=== PATIENT | female | born 1945 | race Caucasian/White ===

== ENCOUNTER → 2017-03-27 | Outpatient (CLI) | payer MEDICARE ==
--- NOTE | 2017-03-27 10:09 | REPMRS ---
Patient History The patient states she had a clinical breast exam in 03/18 Patient is postmenopausal. No known family history of cancer. Digital Woman Screen Mammo: March 27, 2017 - Exam #: [id number] Bilateral CC and MLO view(s) were taken. Technologist: Cherelle Choi, Technologist Prior study comparison: May 05, 2013, digital woman screen mammo performed at [facility]. January 08, 2012, digital woman screen mammo performed at [facility] to [facility]. FINDINGS: There are scattered fibroglandular densities. There has been no change in the appearance of the mammogram from the prior studies. There is a mild amount of residual fibroglandular tissue which is fairly symmetric. There is no interval development of dominant mass, architectural distortion, or clustered microcalcification suggestive of malignancy. Large coarse benign appearing calcifications are present. No significant changes when compared with prior studies. ASSESSMENT: BI-RADS/ACR category 1 mammogram. Negative. Recommendation Routine screening mammogram in 1 year (for women over age 40). This mammogram was interpreted with the aid of an FDA-approved computer-aided dectection system. Electronically Signed By: Lopez Tucker MD 03/27/17 [id number]
== END ==
LOC: M WHC 09:20
PROVIDERS: ATTEND Family Medicine
DX: Z12.31 Encounter for screening mammogram for malignant neoplasm of breast (principal); Z78.0 Asymptomatic menopausal state

== ENCOUNTER → 2018-06-11 | Outpatient (CLI) | payer MEDICARE | LOC: M WHC 09:42 | DX: Z12.31 Encounter for screening mammogram for malignant neoplasm of breast (principal); R92.0 Mammographic microcalcification found on diagnostic imaging of breast; M81.0 Age-related osteoporosis without current pathological fracture; Z78.0 Asymptomatic menopausal state | CPT/HCPCS: 77067 ==

== ENCOUNTER → 2019-11-18 | Outpatient (CLI) | payer MEDICARE ==
--- NOTE | 2019-11-18 13:50 | REPMRS ---
Patient History The patient states she had a clinical breast exam in October 2019. No known family history of cancer. No Hormone Replacement Therapy Digital Woman Screen Mammo: November 18, 2019 - Exam #: [id number] Bilateral CC and MLO view(s) were taken. Technologist: Amanda Fay, Technologist Prior study comparison: June 11, 2018, bilateral digital woman screen mammo performed at [facility]. March 27, 2017, digital woman screen mammo performed at [facility]. May 05, 2013, digital woman screen mammo performed at [facility]. FINDINGS: There are scattered fibroglandular densities. There is a grouping of coarse benign stable microcalcifications in the upper outer quadrant on the left unchanged from numerous prior studies. There has been no change in the appearance of the mammogram from the prior studies. There is a mild amount of scattered fibroglandular density which is fairly symmetric. There is no interval development of dominant mass, architectural distortion, or grouped microcalcification suggestive of malignancy. 3-D tomosynthesis shows no additional findings. Assessment: BI-RADS/ACR category 2 mammogram. Benign Findings. Recommendation Routine screening mammogram in 1 year. This patient's Lifetime Breast Cancer RIsk is estimated at 2.6 %. This mammogram was interpreted with the aid of an FDA-approved computer-aided dectection system. Electronically Signed By: Willard Rojas MD 11/18/19 1874
== END ==
LOC: M WHC 11:18
PROVIDERS: ATTEND Nurse Practitioner
DX: Z12.31 Encounter for screening mammogram for malignant neoplasm of breast (principal)

== ENCOUNTER → 2021-01-27 | Outpatient (CLI) | payer MEDICARE ==
--- NOTE | 2021-01-27 13:26 | REPMRS ---
Patient History The patient states she had a clinical breast exam in October 2020. No known family history of cancer. No Hormone Replacement Therapy Patient states no breast complaints today. Patient has signed MRS History Sheet. Digital Woman Screen Mammo: January 27, 2021 - Exam #: [id number] Bilateral CC and MLO view(s) were taken. Technologist: Amanda Fay, Technologist Prior study comparison: November 18, 2019, bilateral digital woman screen mammo performed at [facility]. June 11, 2018, bilateral digital woman screen mammo performed at [facility]. March 27, 2017, digital woman screen mammo performed at [facility]. January 08, 2012, digital woman screen mammo performed at [facility]. FINDINGS: There are scattered fibroglandular densities. The Volpara volumetric breast density category is:B. There is a raised skin lesion and benign dermal calcifications seen in the right breast. There is a grouping of coarse benign stable microcalcifications in the upper outer quadrant on the left unchanged from numerous prior studies. These calcifications are less prominent than on the 2011 prior study. There has been no other change in the appearance of the mammogram from the prior studies. There is a mild amount of scattered fibroglandular density which is fairly symmetric. There is no interval development of dominant mass, architectural distortion, or grouped microcalcification suggestive of malignancy. 3-D tomosynthesis shows no additional findings. Assessment: BI-RADS/ACR category 2 mammogram. Benign Findings. Recommendation Routine screening mammogram of both breasts in 1 year (for women over age 40). This patient's [facility] Lifetime Breast Cancer Risk is estimated at 2.2 %. This mammogram was interpreted with the aid of an FDA-approved computer-aided dectection system. Electronically Signed By: Willard Rojas MD 01/27/21 2991
== END ==
LOC: M WHC 11:24
PROVIDERS: ATTEND Nurse Practitioner
DX: Z12.31 Encounter for screening mammogram for malignant neoplasm of breast (principal)

== ENCOUNTER → 2022-04-03 | Outpatient (CLI) | payer MEDICARE | LOC: M WHC 09:49 | PROVIDERS: ATTEND Family Medicine | DX: Z12.31 Encounter for screening mammogram for malignant neoplasm of breast (principal); M81.0 Age-related osteoporosis without current pathological fracture ==

== ENCOUNTER → 2022-10-09 | Outpatient (CLI) | payer MEDICARE | LOC: M WUC 10:29 | PROVIDERS: ATTEND Physician Assistant | DX: S40.011A Contusion of right shoulder, initial encounter (principal); X58.XXXA Exposure to other specified factors, initial encounter; Y92.9 Unspecified place or not applicable ==

== ENCOUNTER → 2023-08-15 | Outpatient (CLI) | payer MEDICARE | LOC: M WHC 12:31 | PROVIDERS: ATTEND Family Medicine | DX: Z12.31 Encounter for screening mammogram for malignant neoplasm of breast (principal) ==

== ENCOUNTER → 2024-06-24 | Outpatient (REF) | payer MEDICARE | LOC: M LAB REF 13:33 | PROVIDERS: ATTEND Physician Assistant | DX: L57.0 Actinic keratosis (principal) ==

== ENCOUNTER 2024-07-27 07:21 | Day surgery (SDC) | payer MEDICARE ==
[~2024-07-27] VITALS: Ht 160 cm; Wt 60.7 kg
[~2024-07-27 07:21] MED LIST: ATOR1TAB21 PO; LISI20TA37 PO; LR 1,000 ML IV SCH; METF500T13 PO; OMEP1CAP73 PO; SYNT88TA2 PO; fentaNYL 100 MCG/2 ML INJECTION As Ordered ONE
[2024-07-27] MEDS: PHENYLEPHRINE 2.5% OPHTH SOL 2ML OD SCH (08:31)
[2024-07-27] MEDS: CYCLOPENTOLATE 1% OPHTH SOLN 2ML BTL OD SCH (08:31)
[2024-07-27] MEDS: TETRACAINE 0.5% OPHTH SOLN 4ML OD SCH (08:32)
[2024-07-27] MEDS: FLURBIPROFEN 0.03% OPHTH SOLN 2.5 ML OD SCH (08:32)
[2024-07-27] MEDS: CEFUROXIME 1MG/0.1ML INTRACAMERAL INJ As Ordered ONE (09:27)
[2024-07-27] MEDS: LIDOCAINE 1% SDV 5ML VIAL As Ordered ONE (09:27)
[2024-07-27 09:41] VITALS: BP 125/81; TEMP 97.4; O2SAT 96
== END 2024-07-27 10:01 | disposition home or self-care (01) ==
LOC: M SDC 07:21
PROVIDERS: ATTEND Ophthalmology
DX: H25.9 Unspecified age-related cataract (principal); E11.9 Type 2 diabetes mellitus without complications; Z79.899 Other long term (current) drug therapy
CPT/HCPCS: 66984; J0697; J3010; V2632

== ENCOUNTER → 2025-04-19 | Outpatient (CLI) | payer MEDICARE ==
[~2025-04-19] MED LIST changes: -LR 1,000 ML IV SCH; -fentaNYL 100 MCG/2 ML INJECTION As Ordered ONE
== END ==
LOC: M WHC 08:52
PROVIDERS: ATTEND Family Medicine
DX: Z12.31 Encounter for screening mammogram for malignant neoplasm of breast (principal); N95.1 Menopausal and female climacteric states; M85.88 Other specified disorders of bone density and structure, other site; R92.313 Mammographic fatty tissue density, bilateral breasts

== ENCOUNTER → 2025-08-23 | Outpatient (CLI) | payer MEDICARE | LOC: M WUC 11:18 | PROVIDERS: ATTEND Physician Assistant | DX: S90.01XA Contusion of right ankle, initial encounter (principal); W18.30XA Fall on same level, unspecified, initial encounter; Y92.009 Unspecified place in unspecified non-institutional (private) residence as the place of occurrence of the external cause ==